=== PATIENT | male | born 1955 | race Caucasian/White ===

== ENCOUNTER 2019-01-26 13:33 | Emergency (ER) | payer BC, OTHER ==
[~2019-01-26] VITALS: Ht 177.8 cm; Wt 99.8 kg
[~2019-01-26 13:33] MED LIST: ALEVE220 MG; FAMVIR125 MG; FISH OIL 1,0001 EAC5; GLUCOSAMINE S1000 M2; IMITREX; MIDRIN CAPSULE1 CAP; ONE DAILY FOR1 EACH
[2019-01-26 14:21] LABS: ANION GAP 8 mmol/L (7-16); BUN 19 mg/dL (7-18); CALCIUM 8.8 mg/dL (8.5-10.1); CHLORIDE 102 mmol/L (98-107); CO2 27 mmol/L (21-32); CREATININE 1.1 mg/dL (0.7-1.3); GLUCOSE 109 mg/dL (74-106); SODIUM 137 mmol/L (136-145)
[2019-01-26 14:24] LABS: ABSOLUTE NEUTROPHILS 5.1 thou/uL (1.4-8.2); BASOPHILS 0.7 % (0.0-2.0); EOSINOPHILS 1.8 % (0.0-3.0); HEMATOCRIT 41.4 % (42.0-52.0); HEMOGLOBIN 13.6 gm/dL (14.0-18.0); LYMPHOCYTES 18.2 % (24.0-44.0); MCH 28.9 pg (26.0-34.0); MCHC 32.7 g/dL (28.0-37.0); MCV 88.2 fL (80.0-100.0); MONOCYTES 6.5 % (1.0-8.0); PLATELET COUNT 203 thou/uL (150-400); POLYS 72.8 % (36.0-66.0)
[2019-01-26 14:32] LABS: ALBUMIN 4.1 g/dL (3.4-5.0); SGOT 18 U/L (15-37); SGPT 18 U/L (30-65); TOTAL BILIRUBIN 0.6 mg/dL (<0.1-1.0); TROPONIN-I <0.06 ng/mL (<0.06)
[2019-01-26 14:33] LABS: URINE BILIRUBIN NEGATIVE (Negative); URINE BLOOD TRACE (Negative); URINE CLARITY CLEAR; URINE COLOR YELLOW; URINE GLUCOSE-RANDOM* NEGATIVE (Negative); URINE KETONES NEGATIVE (Negative); URINE LEUKOCYTES-REFLEX NEGATIVE (Negative); URINE NITRITE-REFLEX NEGATIVE (Negative); URINE PROTEIN (DIPSTICK) NEGATIVE (Negative); URINE SPECIFIC GRAVITY <= 1.005 (1.005-1.035); URINE UROBILINOGEN 0.2 E.U./dl (0.2-1.0)
[2019-01-26 15:06] LABS: LIPASE 124 U/L (73-393)
--- NOTE | 2019-01-26 16:23 | EKG ---
[place] [address] [facility] [employer] [place] [address] ELECTROCARDIOGRAM REPORT Name: ROSANNE MAO Room #: [facility]#: [id number] Admission: 01/26/19 Attend Phys: Discharge: Date of : 55 Report #: [id number] THIS REPORT FOR: //name// [facility] ED Test Date: 2019-01-26 Test Time: 14:01:24 Pat Name: ROSANNE MAO Department: Room: Gender: National Sales Associate: [id number] : 1955 Requested By: Clay Manzanares Order Number: [id number] MD: Juancho Javier Measurements Intervals [place] Rate: 54 P: 2 RI: 58 QRS: -3 QRSD: 112 T: 23 QT: 459 QTc: 435 Interpretive Statements Sinus bradycardia Poor R wave progression Compared to ECG 05/03/2007 07:09:23 No significant change was found Electronically Signed On 01-26-2019 16:22:50 INFRASTRUCTURE DEVELOPER by Juancho Javier [email or web address] <ELECTRONICALLY SIGNED> By: Juancho Javier MD, [facility] 01/26/19 1622 1401 1401 Juancho Javier MD, FACC /EPI
[2019-01-26 17:31] VITALS: BP 158/96
== END 2019-01-26 17:32 | disposition home or self-care (01) ==
LOC: ER 13:33
PROVIDERS: Emergency Medicine
DX: R41.0 Disorientation, unspecified (principal); G43.909 Migraine, unspecified, not intractable, without status migrainosus; F32.9 Major depressive disorder, single episode, unspecified; F17.210 Nicotine dependence, cigarettes, uncomplicated; Z90.49 Acquired absence of other specified parts of digestive tract; Z88.0 Allergy status to penicillin

== ENCOUNTER → 2020-02-05 | Outpatient (CLI) | payer OTHER | LOC: LAB 14:34 | PROVIDERS: ATTEND Family Medicine | DX: Z20.828 Contact with and (suspected) exposure to other viral communicable diseases (principal) ==

== ENCOUNTER → 2020-02-11 | Outpatient (CLI) | payer OTHER | LOC: LAB 14:45 | PROVIDERS: ATTEND Family Medicine | DX: Z20.828 Contact with and (suspected) exposure to other viral communicable diseases (principal) ==

== ENCOUNTER 2020-10-27 09:05 | Inpatient (IN) | payer OTHER ==
[~2020-10-27] VITALS: Ht 177.8 cm; Wt 96.2 kg
[2020-10-27 09:13] VITALS: BP 128/89
[2020-10-27] MEDS ORDERED: ZOLOFT 50 MG TA50 MG PO (09:28)
[2020-10-27] MEDS ORDERED: ZOLPIDEM TARTRA10 MG PO (09:29)
[2020-10-27] MEDS ORDERED: MELATONIN10 M2 PO (09:29)
[2020-10-27 09:52] LABS: ABSOLUTE NEUTROPHILS 3.5 thou/uL (1.4-8.2); BASOPHILS 1.1 % (0.0-2.0); EOSINOPHILS 4.4 % (0.0-3.0); HEMATOCRIT 40.2 % (42.0-52.0); HEMOGLOBIN 13.5 gm/dL (14.0-18.0); LYMPHOCYTES 22.3 % (24.0-44.0); MCH 29.7 pg (26.0-34.0); MCHC 33.7 g/dL (28.0-37.0); MCV 88.2 fL (80.0-100.0); MONOCYTES 9.3 % (1.0-8.0); PLATELET COUNT 222 thou/uL (150-400); POLYS 62.9 % (36.0-66.0); RBC 4.56 mil/uL (4.50-6.00); RDW 13.4 % (10.5-14.5); WBC 5.6 thou/uL (4.0-11.0)
[2020-10-27 10:02] LABS: CREATININE 1.1 mg/dL (0.7-1.3); POTASSIUM 3.8 mmol/L (3.5-5.1)
[2020-10-27 10:08] LABS: ALBUMIN 3.8 g/dL (3.4-5.0); TOTAL BILIRUBIN 0.6 mg/dL (0.2-1.0); TOTAL PROTEIN 6.6 g/dL (6.4-8.2)
[2020-10-27 15:00] VITALS: BP 145/92
--- NOTE | 2020-10-27 15:05 | EKG ---
[address] [place] [address] ELECTROCARDIOGRAM REPORT Name: DAYLINROSANNE Jamie Room #: 170-11 ADM IN M.R.#: [id number] Admission: 10/27/20 Attend Phys: Dajuan Navas MD Discharge: Date of : 55 Report #: [id number] [facility] ED Test Date: 2020-10-27 Test Time: 09:53:01 Pat Name: ROSANNE MAO Department: Room: 170 Gender: M Clearance Center Manager: JONATHAN CANTU : 1955 Requested By: Tavares Lizama Order Number: [id number] MD: Jesu Pennington Measurements Intervals [place] Rate: 56 P: 35 NE: 203 QRS: 17 QRSD: 97 T: 55 QT: 434 QTc: 419 Interpretive Statements Sinus rhythm Compared to ECG 01/26/2019 14:01:24 ST (T wave) deviation now present Sinus bradycardia no longer present Poor R-wave progression no longer present Electronically Signed On 10-27-2020 15:05:00 CDT by Jesu Pennington [email or web address] <ELECTRONICALLY SIGNED> By: Jesu Pennington MD, [facility] 10/27/20 1505 0953 [id number] Jesu Pennington MD, [facility] /EPI
--- NOTE | 2020-10-27 15:18 | NUR ---
[facility] [phone]
--- NOTE | 2020-10-27 17:32 | NUR ---
65 y/o male presenting to the ED on 10-27-20 for confusion for the past 2-3 days. Per the reports is that the pt has been unable to remember where he is and what he's doing. Per the ED Triage assessment the patient shows as vaccinated with Moderna and now ID NOW testing is not noted. The patient is a current patient of Dr. Chaney. Neurology has been consulted and the patient has been admitted to the hospital under a hospitalist for AMS. Upon last ED assessment as with admission the patient is listed at A&O x4. Of note patient had similar episode on 01-26-19 and upon symptom resolution the patient was discharged home from the ED at that time. Christa Allan at [phone] is listed as next of kin. As plan of care is developed upon MD assessment; CM will monitor for discharge needs as patient currently lives with spouse Christa and is retired.
[2020-10-27 17:40] LABS: FOLIC ACID 18.1 ng/mL (8.6-58.9)
[2020-10-27 20:21] VITALS: BP 141/84
[2020-10-27 20:52] VITALS: BP 141/84
[2020-10-27 21:37] VITALS: BP 158/89
--- NOTE | 2020-10-27 21:57 | NUR ---
PT IS A/O X4 AND IS FORGETFUL. UP AD JULIANNA, ON ROOM AIR. VSS. AFEBRILE. DENIES C/O PAIN OR DISCOMFORT. ADMISSION COMPLETE. PT HAS BEEN EDUCATED ON USE OF CALL LIGHT AND BED CONTROL. CURRENTLY EATING A SNACK BUT WILL BE NPO AT MIDNIGHT AWAITING PROCEDURES IN THE AM. CALL LIGHT IS WITHIN REACH. PT IS PLEASANT AND COOPERATIVE. CONSENTS SIGNED AND IN THE CHART. WILL CONTINUE TO MONITOR.
[2020-10-28 04:59] VITALS: BP 144/89
[2020-10-28 08:30] VITALS: BP 150/87
--- NOTE | 2020-10-28 10:42 | NUR ---
ASSUMED CARE AT 0700. PATIENT IS ALERT AND ORIENTED X4, BUT HAS PERIODS OF FORGETFULNESS. PATIENT IS NPO. PATIENT HAS S.L. IN HIS RIGHT AC. PATIENT HAS HX OF SZ. PLAN EEG THIS A.M. FOLLOWED BY MRI. OT HERE TO SEE PATIENT R/T ADL'S. PATIENT IS UP WITH SBA. PATIENT IS TO HAVE PT/OT/ST EVALS TODAY. FALL AND SAFETY PROTOCOLS IN PLACE. UP WITH SBA TO BATHROOM TO VOID HAYDEE COLORED URINE. WILL CONTINUE TO MONITER.
--- NOTE | 2020-10-28 13:01 | NUR ---
ORDERS RECEIVED FOR PT EVAL AND TREAT. Pt ADMITTED FOR AMS, INTERMITTENT/TRANSIENT CONFUSION. Pt LIVES W/ IN HOME W/ 1-2 GISELA AND 6-10 STEPS INSIDE BETWEEN VARIOUS LEVELS BUT LIVES MOSTLY ON MAIN LEVEL. NO AD. DRIVES. WALKS 2-2.5 MILES/DAY WITH HIS IN THEIR NEIGHBORHOOD. DENIED RECENT FALLS. Pt HAD EEG THIS AM AND PLANNING FOR MRI LATER TODAY. Pt HAS BEEN UP AD JULIANNA IN ROOM; CONFIRMED. Pt DOES NOT HAVE PT CONCERNS AT THIS TIME. DECLINES NEED FOR PT. ACUTE PT TO SIGN OFF.
[2020-10-28 16:10] VITALS: BP 125/78
[2020-10-28] MEDS ORDERED: ZOLOFT 50 MG TA50 MG PO (20:07)
[2020-10-28 21:15] VITALS: BP 132/80
--- NOTE | 2020-10-29 02:30 | NUR ---
ASSESSED AT START OF SHIFT PT RESTING IN BED. REQUESTED NIGHT TIME MEDICATIONS. ASSISTANT MAINTENANCE MANAGER DRAW FRAME TENDER NOTIFIED AND EEVENING MEDS GIVEN. PT UPAD JULIANNA TO THE BATHROOM. FALL EDUCATION PROVIDED. URINAL AT BEDSIDE. NO FURTHER SIGNS OF DISCOMFORT WILL CONT TO MONITOR.
[2020-10-29 05:38] VITALS: BP 135/85
--- NOTE | 2020-10-29 10:08 | NUR ---
ASSUMED PT CARE THIS AM. PT IS ALERT & ORIENTED X4 BUT FORGETFUL AT TIMES. PT HAS IV SITE ON L AC SALINE LOCKED. PT IS ON ROOM AIR. NO SEIZURE NOTED THIS AM. PT DENIES PAIN, NAUSEA AND VOMITING THIS AM. PT TOLERATED MEDICATION AND DIET WELL. WILL CONTINUE TO MONITOR PT. FOLLOW POC.
--- NOTE | 2020-10-29 12:22 | HC ---
[facility] [place] [address] CONSULTATION Name: ROSANNE MAO Room #: 446-P ADM IN M.R.#: [id number] Admission: 10/27/20 Attend Phys: Dajuan Navas MD Discharge: Date of : 55 Report #: [id number] THIS REPORT FOR: cc: Pieter Chaney MD, Rene P. MD Khosla, Parveen K. MD ~ DATE OF SERVICE: 10/27/2020 HISTORY OF PRESENT ILLNESS: This 65-year-old male patient was evaluated by me for altered mental status. The patient says that he has been confused for a few days. Family states that the confusion may be much longer, but the patient insists that it is from the last few days only. He sometimes forgets what date it is. Yesterday could not recall the president's name. He denies any unusual stress. He said he is not having trouble with anxiety or depressions in the past and is not on any medications for that, but the record says that he does have a history of depression. He does have a history of migraine but he takes Imitrex virtually every day. He does take Zoloft. He does take Zolpidem. He had appendectomy. REVIEW OF SYSTEMS: Otherwise, he says he is reasonably healthy, and a 14-point review of systems mostly unremarkable. PAST MEDICAL HISTORY: Positive for migraine, but history is poorly defined. FAMILY HISTORY: Noncontributory. SOCIAL HISTORY: He says he does not drink alcohol, but smokes a cigar once in a while. PHYSICAL EXAMINATION: He is alert. He is responsive. He could tell me what month it is, could not tell me what day it is. Today, he was able to name the president and the one before, but it took him a long time to answer most of the questions. Cranial nerve examination II-XII looks unremarkable. Neuromuscular examination is unremarkable. There is no cerebellar sign. I could not look at the patient's fundus. There is no meningeal sign. There is no carotid bruit. There is no thyroid mass. He is a well-developed individual. His pulses are palpable. He has no edema, cyanosis or jaundice. Cardiac and respiratory examination is unremarkable. CT scan showed some atrophy, but nothing acute. IMPRESSION: Although the history is somewhat difficult, but looks like he has a pretty significant confusion from the last 2-3 days. I will get an MRI, EEG and neuropsychological testing done. I will send a sed rate in this patient and the further workup will depend upon the outcome of these testing. I discussed with the patient, with Emergency Room physician and I have discussed with him and his options in detail. [address] [address] CONSULTATION Name: ROSANNE MAO Room #: 446-P ADM IN M.R.#: [id number] Admission: 10/27/20 Attend Phys: Dajuan Navas MD Discharge: Date of : 55 Report #: [id number] Thank you very much for this referral. <ELECTRONICALLY SIGNED> By: Ferdinand Shelton MD 10/29/20 1222 1856 0032 Ferdinand Shelton MD /nt
--- NOTE | 2020-10-29 14:00 | NUR ---
ASSESSMENT: CM REVIEWED CHART AND MET WITH PATIENT AT THE BEDSIDE. PT WAS ADMITTED DUE TO FORGETFULLNESS AND CONCERNS ABOUT DISORIENTATION. CM MET WITH PATIENT AT THE BEDSIDE. PT REPORTS THAT HE CURRENTLY LIVES AT HOME WITH HIS AND HIS SON. PT REPORTS LIVING IN A HOUSE WITH ONE STEP TO ENTER AND NO STEPS HE HAS TO USE ONCE INSIDE. PT REPORTS BEING FULLY INDEPENDENT WITH ADLS AND AMBULATION. PT STATES HE HAS NEVER HAD HH IN THE PAST OR BEEN TO SNF. NEUROLOGY IS ON THE CASE AND IF PT IS CLEARED BY NEURO TODAY THEN HE WILL POSSIBLY DISCHARGE HOME. PT REPORTS HE SHOULD HAVE NO NEEDS FROM CM. CM WILL CONTINUE TO FOLLOW.
[2020-10-29] MEDS ORDERED: KEPPRA750 MG PO (16:05)
[2020-10-29] MEDS ORDERED: FOLIC ACID1 MG PO (16:05)
[2020-10-29 16:10] VITALS: BP 153/94
[2020-10-29 16:16] VITALS: BP 153/94
--- NOTE | 2020-10-29 16:43 | NUR ---
ASSUMED PATIENT CARE TODAY AT 1300. AWAITING NEURO PHYSICIAN TO DISCHARGE PATIENT. PHYSICIAN GAVE ORDERS TO DISCHARGE PATIENT HOME. WILL INCREASE KEPPRA TO 750MG. PRESCRIPTIONS SENT TO PATIENTS PHARMACY. DISCHARGE INSTRUCTIONS GIVEN TO PATIENT AND . VERBALIZED UNDERSTANDING. PATIENT LEFT THE BUILDING AT 1630 VIA VEHICLE.
--- NOTE | 2020-11-03 13:23 | EEG ---
[facility] [place] [address] ELECTROENCEPHALOGRAM Name: ROSANNE MAO Room #: 446-P DIS IN M.R.#: [id number] Admission: 10/27/20 Attend Phys: Dajuan Navas MD Discharge: 10/29/20 Date of : 55 Report #: [id number] THIS REPORT FOR: //name// DATE OF SERVICE: 10/28/2020 This patient's EEG was dictated but they cannot find the report, so it is being redictated. The EEG was done by using standard 10-20 system of electrode placement. Both referential and sequential montages were used for recording. Background activity is about 9 Hz. The patient does become drowsy and that is associated with bilateral slowing. The patient had multiple episodes of what looks like spike and slow wave activity. It was not 3 Hz spike and slow wave activity. It was generalized spike and slow wave activity. Photic stimulation was unremarkable. IMPRESSION: This patient's study demonstrated multiple episodes of spike and slow wave activity. If clinically correlated, that finding would be consistent with the diagnosis of seizure disorder. Thank you very much for this referral. <ELECTRONICALLY SIGNED> By: Ferdinand Shelton MD 11/03/20 1323 1110 1204 Ferdinand Shelton MD /nt
== END 2020-10-29 16:45 | disposition home or self-care (01) | DRG 72 ==
LOC: ER 09:05 → EROBS 14:27 → 4S 14:27
PROVIDERS: Orthopaedic Surgery Adult Reconstructive Orthopaedic Surgery; ADMIT Internal Medicine; ATTEND Internal Medicine
DX: G93.41 Metabolic encephalopathy (principal); G40.309 Generalized idiopathic epilepsy and epileptic syndromes, not intractable, without status epilepticus; R41.0 Disorientation, unspecified; F32.9 Major depressive disorder, single episode, unspecified; F03.90 Unspecified dementia, unspecified severity, without behavioral disturbance, psychotic disturbance, mood disturbance, and anxiety; M19.90 Unspecified osteoarthritis, unspecified site; G43.909 Migraine, unspecified, not intractable, without status migrainosus; Z20.822 Contact with and (suspected) exposure to COVID-19; Z90.49 Acquired absence of other specified parts of digestive tract; Z88.0 Allergy status to penicillin
CPT/HCPCS: 10195